=== PATIENT | female | born 1970 | race Native Hawaiian/Other Pacific Islander ===

== ENCOUNTER 2019-05-05 09:11 | Outpatient (CLI) | payer BC | END 2019-05-05 23:11 | disposition home or self-care (01) | LOC: MAMMO 09:11 | DX: Z12.31 Encounter for screening mammogram for malignant neoplasm of breast (principal) ==

== ENCOUNTER 2019-06-05 08:50 | Outpatient (CLI) | payer BC | END 2019-06-05 21:27 | disposition home or self-care (01) | LOC: US 08:50 | DX: N64.4 Mastodynia (principal) ==

== ENCOUNTER 2020-05-11 14:24 | Outpatient (CLI) | payer BC | END 2020-05-11 23:29 | disposition home or self-care (01) | LOC: MAMMO 14:24 | DX: N64.4 Mastodynia (principal) | CPT/HCPCS: G0279 ==